=== PATIENT | female | born 1995 | race Two or more races ===

== ENCOUNTER 2020-01-02 15:51 | Emergency (ER) | payer OTHER ==
[~2020-01-02] VITALS: Ht 165.1 cm; Wt 61.0 kg
[2020-01-02 18:04] VITALS: BP 127/82
== END 2020-01-02 18:05 | disposition home or self-care (01) ==
LOC: ER 15:51
DX: S43.101A Unspecified dislocation of right acromioclavicular joint, initial encounter (principal); V49.60XA Unspecified car occupant injured in collision with unspecified motor vehicles in traffic accident, initial encounter; Y93.89 Activity, other specified; Y92.411 Interstate highway as the place of occurrence of the external cause
CPT/HCPCS: 73030; 99283